=== PATIENT | male | born 1965 | race Caucasian/White ===

== ENCOUNTER 2017-11-27 06:04 | Day surgery (SDC) | payer OTHER ==
[2017-11-26 14:51] VITALS: BMI 30.4
[2017-11-27] MEDS ORDERED: MIDAZOLAM HCL 2 MG/2 ML SINGLE DOSE VIAL ONE ×2 (07:54→08:11)
[2017-11-27] MEDS ORDERED: BUPIVACAINE HCL/PF 0.5% (5MG/ML) 10 ML VIAL ONE (08:03)
[2017-11-27] MEDS ORDERED: LIDOCAINE HCL 1%, 10 MG/ML (20ML VIAL) ONE (08:03)
[2017-11-27] MEDS ORDERED: ceFAZolin SODIUM 1 GM VIAL IVPB ONE (08:04)
[2017-11-27] MEDS ORDERED: ceFAZolin SODIUM 1 GM VIAL ONE (08:04)
--- NOTE | 2017-11-27 08:07 | HP ---
Satellite [facility] - Chief Complaint Chief Complaint: right index finger mass History of Present Illness: right index finger mass History Source: Patient Limitations to Obtaining History: No Limitations - Past Medical History Allergies/Adverse Reactions: Allergies Allergy/AdvReac Type Severity Reaction Status Date / Time No Known Allergies Allergy Verified 11/27/17 06:20 - Current Medications Current Medications: Home Medications Medication Instructions Recorded Multivitamin [One Daily] 1 each PO DAILY 11/26/17 [place]-3 Fatty Acids/Fish Oil [Fish 1 each PO DAILY 11/26/17 Oil 1,000 mg Capsule] Satellite Physical Exam - Physical Examination Vital Signs: Vital Signs Period Temp Pulse Resp BP Sys/Tee Pulse Ox Last 24 Hr 98.1 F 85 16 140/76 98 General Appearance: Well Nourished ENT: Clear Lung: Clear to auscultation Heart: Regular rate & rhythm Breasts: Soft Abdomen: Soft Extremities: No edema Satellite Impression/Plan - Impression/Plan Impression: right index finger mass Operative Procedure: right index finger mass excision Date to be Performed: 11/27/17
[2017-11-27] MEDS ORDERED: BUPIVACAINE HCL/PF 0.5% (5MG/ML) 10 ML VIAL IJ ONE (08:23)
[2017-11-27] MEDS ORDERED: LIDOCAINE HCL 1%, 10 MG/ML (20ML VIAL) NR ONE (08:23)
--- NOTE | 2017-11-27 08:42 | OP ---
Operative Note - Note: Operative Date: 11/27/17 Pre-Operative Diagnosis: right index finger mass Operation: right index finger mass excision Post-Operative Diagnosis: Same as Pre-op Surgeon: Carlos Atkinson Anesthesiologist/MINI SHIFTER: Titi Sutton Anesthesia: Local, MAC Specimens Removed: mass right index finger Estimated Blood Loss (mls): 0 Drains, Volume Out (mls): 0 Blood Volume Replaced (mls): 0 Fluid Volume Replaced (mls): 500 Operative Report Dictated: Yes
[2017-11-27] MEDS ORDERED: oxyCODONE HCL 5 MG TABLET PO PRN (08:52)
[2017-11-27] MEDS ORDERED: ONDANSETRON 4 MG/2 ML VIAL IVPUSH PRN (08:52)
[2017-11-27] MEDS ORDERED: LACTATED RINGERS SOLUTION 1,000 ML IV SCH (09:00)
[2017-11-27 09:21] VITALS: TEMP 97.6
--- NOTE | 2017-11-27 10:58 | OP ---
DATE OF OPERATION: 11/27/2017 PREOPERATIVE DIAGNOSIS: Right index finger mass. POSTOPERATIVE DIAGNOSIS: Right index finger mass. PROCEDURE: Right index finger mass excision. SURGEON: Carlos Carrasco MD ASSISTANTS: None. ANESTHESIOLOGIST: Titi Sutton MD ANESTHESIA: MAC anesthesia, local injection of 5 mL of 0.5% Marcaine and 1% lidocaine mix. DRAINS: None. COMPLICATIONS: None. SPECIMEN: Mass, right index finger. BLOOD LOSS: None. BLOOD GIVEN: None. FLUID REPLACEMENT: Plasma-L:yte, 500 mL. This patient is a 52-year-old male with a history of a painful recurrent mass on the dorsal aspect of his right index finger. After understanding the potential risks, complications, alternatives and benefits of surgical versus nonsurgical treatment the patient elected to undergo this procedure. Patient was brought to the operating room. Peripheral IV placed. IV sedation given. Ancef 1 g IV was given. MAC anesthesia was induced. The right upper extremity was prepped and draped in a sterile fashion. Longitudinal incisions were marked out with a marking pen and 5 mL of 0.5% Marcaine and 1% lidocaine mix was injected in and around the surgical incision. The right upper extremity was then elevated, exsanguinated with an Esmarch bandage and tourniquet inflated to 250 mmHg. A longitudinal incision was made with a No. 15-scalpel blade. Subcutaneous hemostasis achieved with the bipolar cautery. The mass was quite superficial. Circumferential dissection around this mass was done with the fresh No. 15-scalpel blade and the curved sharp-tipped iris scissors. The mass was multilobulated, yellowish in appearance. It did not have fluid. It was not a ganglion cyst. It appeared to be fibrotic in nature. It might be giant cell tumor. It was not invasive into or adherent to the surrounding soft tissues. It was well encapsulated. It was circumferentially dissected free and then passed off the field as specimen in its entirety. The area was copiously irrigated and washed out, inspected and I did not see or feel any other abnormal tissue. The area was irrigated and washed out again and skin closure done with 4-0 nylon suture. The area was then washed and dried, covered with Xeroform, 4 x 4 gauze, fluffs between the fingers, Webril and Coban. The tourniquet was taken down after total tourniquet time of 11 minutes. There were no complications during the case. The patient tolerated the procedure well and was brought to the ambulatory recovery room in stable condition. CARLOS CARRASCO M.D. [id number]
[2017-11-27 12:18] VITALS: BP 125/76; PULSE 64
--- NOTE | 2017-11-28 16:34 | PATH ---
Surgical Pathology Report Patient Name: ANNE MARTINEZ [facility]. Rec. #: [id number] /Age/Gender: 1965 (Age: 52) / M Account: [id number] Location: U SURGICAL Taken: 11/27/2017 Received: 11/27/2017 Reported: 11/28/2017 Physicians: Carlos Atkinson M.D. Specimen(s) Received MASS OF RIGHT INDEX FINGER Clinical History Mass right index finger Final Diagnosis INDEX FINGER, RIGHT, MASS, EXCISION: TENOSYNOVIAL GIANT CELL TUMOR. Electronically Signed Renae Stern M.D. Gross Description Received in formalin labeled "mass right index finger," is a 0.6 x 0.5 x 0.3 cm giron-yellow soft tissue mass. The specimen is submitted in toto in one cassette. DL/11/27/2017 [place]/11/27/2017
== END 2017-11-27 11:35 | disposition home or self-care (01) ==
LOC: JASU-SURG 06:04
PROVIDERS: ATTEND Orthopaedic Surgery
PROC: 0JBJ0ZZ Excision of Right Hand Subcutaneous Tissue and Fascia, Open Approach (ICD-10-PCS; principal; 2017-11-27 08:00)
DX: D48.1 Neoplasm of uncertain behavior of connective and other soft tissue (principal)
CPT/HCPCS: 88305-TC; 94760

== ENCOUNTER 2018-05-31 12:23 | Emergency (ER) | payer OTHER ==
[2018-05-31 12:30] VITALS: BP 161/94; PULSE 96; TEMP 99; BMI 30.4
[2018-05-31] MEDS ORDERED: ALBUTEROL SO4 2.5/IPRATROPIUM 0.5 INH SOL 3 ML VIAL.NEB. NEB ONE ×2 (13:04→13:08)
--- NOTE | 2018-05-31 13:11 | PDOC ---
History of Present Illness - General Chief Complaint: Respiratory Stated Complaint: COLD SYMPTOMS Time Seen by Provider: 05/31/18 12:59 History Source: Patient Exam Limitations: No Limitations - History of Present Illness Initial Comments: 05/31/18 13:11 Patient came to emergency department for evaluation of persistent cough with fevers for the past 3 days. States his had general body aches, headache pain, sore throat pain, and a moist nonproductive cough. Tmax 100.2 at home. Has been using oxlo-rqg-nswiten medications with minimal resolved. States received flu shot 3 weeks ago Timing/Duration: reports: changing over time, getting worse Severity: reports: mild, moderate Associated Symptoms: reports: cough, earache, facial pain, fever/chills, headache, nasal congestion, nasal drainage, sore throat Past History - Travel Traveled outside of the country in the last 30 days: No Close contact w/someone who was outside of country & ill: No - Past Medical History Allergies/Adverse Reactions: Allergies Allergy/AdvReac Type Severity Reaction Status Date / Time No Known Allergies Allergy Verified 05/31/18 12:28 Home Medications: Ambulatory Orders Albuterol Sulfate Inhaler - [Ventolin HFA Inhaler -] 1 - 2 inh PO Q4H #1 inhaler 05/31/18 Azithromycin [Zithromax -] 250 mg PO UTDICT #6 tab 05/31/18 Anemia: No Asthma: No Cancer: No Cardiac Disorders: No CVA: No COPD: No CHF: No Dementia: No Diabetes: No GI Disorders: No Disorders: No HTN: No Hypercholesterolemia: No Liver Disease: No Seizures: No Thyroid Disease: No - Surgical History Cholecystectomy: Yes - Immunization History Td Vaccination: Yes TDAP Vaccination: Yes Immunization Up to Date: Yes - Suicide/Smoking/Psychosocial Hx Smoking Status: Yes Smoking History: Current every day smoker Years of Tobacco Use: 0 Have you smoked in the past 12 months: Yes Number of Cigarettes Smoked Daily: 10 Cigars Per Day: 5 Information on smoking cessation initiated: No 'Breaking Loose' booklet given: 11/27/17 Hx Alcohol Use: Yes (wine occas) Drug/Substance Use Hx: No Substance Use Type: Alcohol Hx Substance Use Treatment: No Review of Systems - Review of Systems Able to Perform ROS?: Yes Is the patient limited Latvian proficient: Yes Constitutional: Yes: Symptoms Reported, See HPI, Chills, Fever, Loss of Appetite , Malaise HEENTM: Yes: Symptoms Reported, See HPI, Nose Congestion, Throat Pain, Throat Swelling Respiratory: Yes: Symptoms reported, See HPI (nonproductive), Cough. No: Orthopnea, Wheezing ABD/GI: No: Symptoms Reported Neurological: Yes: Symptoms reported, See HPI (frontal), Headache Endocrine: No: Symptoms Reported All Other Systems: Reviewed and Negative *Physical Exam - Vital Signs Last Vital Signs Temp Pulse Resp BP Pulse Ox 99.0 F 96 H 18 161/94 99 05/31/18 12:25 05/31/18 12:25 05/31/18 12:25 05/31/18 12:25 05/31/18 12:25 - Physical Exam General Appearance: Yes: Nourished, Appropriately Dressed, Apparent Distress, Mild Distress, Moderate Distress HEENT: positive: Normal ENT Inspection, TMs Normal (congested but landmarks easily visualized), Tonsillar Erythema, Nasal Congestion, Rhinorrhea. negative : Tonsillar Exudate Neck: positive: Supple, Lymphadenopathy (R), Lymphadenopathy (L). negative: Tender Respiratory/Chest: positive: Decreased Breath Sounds, Wheezing (faint expiratory ). negative: Lungs Clear, Normal Breath Sounds Cardiovascular: positive: Regular Rate Gastrointestinal/Abdominal: positive: Soft. 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 We'll treat with Z-Jose and albuterol inhalers. *DC/Admit/Observation/Transfer Diagnosis at time of Disposition: Upper respiratory tract infection Qualifiers: URI type: unspecified URI Qualified Code(s): J06.9 - Acute upper respiratory infection, unspecified - Discharge Dispostion Disposition: HOME Condition at time of disposition: Stable Decision to Admit order: No - Prescriptions Prescriptions: Albuterol Sulfate Inhaler - [Ventolin HFA Inhaler -] 1 - 2 inh PO Q4H #1 inhaler Azithromycin [Zithromax -] 250 mg PO UTDICT #6 tab - Referrals Referrals: Som Rainey MD [Primary Care Provider] - - Patient Instructions Printed Discharge Instructions: DI for Acute Bronchitis Additional Instructions: Rest, drink lots of fluids: Teas, water, soups, Pedialyte Saltwater gargles Steamy showers/seem to face break up mucus Avoid contact with others until fevers and cough resolved Lots of handwashing and good hygiene Continue [id number]-[id number] medications for symptomatic relief Tylenol or Motrin for fever and pain Proventil inhaler, 2 puffs 4 times a day for the next 2 days then as needed for persistent cough Azithromycin as directed Followup with private physician in one to 2 days as needed Return to emergency department for worsened symptoms, fevers, dehydration - Post Discharge Activity Forms/Work/School Notes: Back to Work
== END 2018-05-31 14:08 | disposition home or self-care (01) ==
LOC: JERFT 12:23 → JER 12:23 → JERFT 14:08
PROC: 3E0F7GC Introduction of Other Therapeutic Substance into Respiratory Tract, Via Natural or Artificial Opening (ICD-10-PCS; principal; 2018-05-31)
DX: J06.9 Acute upper respiratory infection, unspecified (principal); F17.210 Nicotine dependence, cigarettes, uncomplicated
CPT/HCPCS: 87804; 99281-25

== ENCOUNTER 2019-09-19 01:54 | Emergency (ER) | payer OTHER ==
[2019-09-19 02:51] VITALS: BMI 29.6
[2019-09-19] MEDS ORDERED: KETOROLAC TROMETHAMINE 30 MG/1 ML VIAL IVPUSH ONE (02:57)
[2019-09-19] MEDS ORDERED: SODIUM CHLORIDE 1,000 ML IV STA (02:57)
--- NOTE | 2019-09-19 03:04 | PDOC ---
Attending Attestation - Resident Resident Name: Shubham Coyle - ED Attending Attestation I have performed the following: I have examined & evaluated the patient, The case was reviewed & discussed with the resident, I agree w/resident's findings & plan - HPI HPI: 09/19/19 06:04 Pt has a kidney stone on the right side. He had this once in the past and he never had it since. States that he doesn;t drink enough water. Pt has no other complaints. - Physicial Exam PE: 09/19/19 06:04 Agree with resident exam Pt has no fever. He has right side pain no abd pain no rash no shingles neuro exam normal heart normal lung normal - Medical Decision Making 09/19/19 06:05 Pain improved with hydration, flomax, meds Pt will follow with urology as an outpatient Name: [facility] THIS IS A PRELIMINARY REPORT FROM [facility] DATE OF SERVICE: 2019-09-19 04:26:21 IMAGES: [id number] EXAM: SPIRAL- RENAL-STONE CT HISTORY: Rule out kidney stone COMPARISON: None. FINDINGS: Lung bases are clear. The visualized cardiac chambers are normal size and configuration. Status post cholecystectomy without biliary duct dilation. There is minimal right hydronephrosis secondary to a 3 mm distal UVJ stone. No other stones identified. Normal liver, pancreas, spleen, adrenal glands and left kidney. The stomach and abdominal small and large bowel are normal. There is no aortic aneurysm. There is no significant retroperitoneal lymphadenopathy. The pelvic small and large bowel are normal. The appendix is normal. The urinary bladder is not inflamed. The prostate gland at its normal. No pelvic free fluid is identified. There is no significant pelvic lymphadenopathy. IMPRESSION: Minimal right hydronephrosis secondary to a 3 mm distal UVJ stone.
--- NOTE | 2019-09-19 03:07 | PDOC ---
History of Present Illness - General Chief Complaint: Pain Stated Complaint: PAIN Time Seen by Provider: 09/19/19 02:52 - History of Present Illness Initial Comments: 09/19/19 03:21 Mr. Harrell is a 54 yo male w/ pmh of kidney stones (distant, last 25 years ago) who presents for evaluation of 1 day history of R flank pain that has been intermittent since 10am yesterday. Patient reports symptoms started in AM and were manageable however progressed throughout the day to keep him from sleeping overnight. Patient presents as symptoms have continued. Denies symptoms beyond pain at this time. The patient denies chest pain, shortness of breath, headache and dizziness. Denies fever, chills, nausea, vomit, diarrhea and constipation. Denies dysuria, frequency, urgency and hematuria. Past History - Past Medical History Allergies/Adverse Reactions: Allergies Allergy/AdvReac Type Severity Reaction Status Date / Time No Known Allergies Allergy Verified 09/19/19 02:51 Home Medications: Ambulatory Orders Albuterol Sulfate Inhaler - [Ventolin HFA Inhaler -] 1 - 2 inh PO Q4H #1 inhaler 05/31/18 Azithromycin [Zithromax -] 250 mg PO UTDICT #6 tab 05/31/18 Tamsulosin HCl [Flomax] 0.4 mg PO DAILY #7 cap.er.24h 09/19/19 Anemia: No Asthma: No Cancer: No Cardiac Disorders: No CVA: No COPD: No CHF: No Dementia: No Diabetes: No GI Disorders: No Disorders: No HTN: No Hypercholesterolemia: No Liver Disease: No Seizures: No Thyroid Disease: No - Surgical History Cholecystectomy: Yes - Immunization History Td Vaccination: Yes TDAP Vaccination: Yes Immunization Up to Date: Yes - Psycho Social/Smoking Cessation Hx Smoking Status: Yes Smoking History: Current every day smoker Years of Tobacco Use: 0 Have you smoked in the past 12 months: Yes Number of Cigarettes Smoked Daily: 2 Cigars Per Day: 5 Information on smoking cessation initiated: No 'Breaking Loose' booklet given: 11/27/17 Hx Alcohol Use: No Drug/Substance Use Hx: No Substance Use Type: Alcohol Hx Substance Use Treatment: No Review of Systems - Review of Systems Comments:: 09/19/19 03:22 GENERAL/CONSTITUTIONAL: No fever or chills. No weakness. HEAD, EYES, EARS, NOSE AND THROAT: No change in vision. No ear pain or discharge. No sore throat. CARDIOVASCULAR: No chest pain or shortness of breath RESPIRATORY: No cough, wheezing, or hemoptysis. GASTROINTESTINAL: No nausea, vomiting, diarrhea or constipation. GENITOURINARY: +R flank pain as described. No dysuria, frequency, or change in urination. MUSCULOSKELETAL: No joint or muscle swelling or pain. No neck or back pain. SKIN: No rash NEUROLOGIC: No headache, vertigo, loss of consciousness, or change in strength/ sensation. ENDOCRINE: No increased thirst. No abnormal weight change HEMATOLOGIC/LYMPHATIC: No anemia, easy bleeding, or history of blood clots. ALLERGIC/IMMUNOLOGIC: No hives or skin allergy. *Physical Exam - Vital Signs Last Vital Signs Temp Pulse Resp BP Pulse Ox 97.9 F 77 16 160/91 99 09/19/19 02:00 09/19/19 02:00 09/19/19 02:00 09/19/19 02:00 09/19/19 02:00 - Physical Exam 09/19/19 03:23 GENERAL: Awake, alert, and fully oriented, in no acute distress HEAD: No signs of trauma, normocephalic, atraumatic EYES: PERRLA, EOMI, sclera anicteric, conjunctiva clear ENT: Auricles normal inspection, hearing grossly normal, nares patent, oropharynx clear without exudates. Moist mucosa NECK: Normal ROM, supple, no lymphadenopathy, JVD, or masses LUNGS: No distress, speaks full sentences, clear to auscultation bilaterally HEART: Regular rate and rhythm, normal S1 and S2, no murmurs, rubs or gallops, peripheral pulses normal and equal bilaterally. ABDOMEN: +R flank TTP. Abdomen soft, nontender, normoactive bowel sounds. No guarding, no rebound. No masses EXTREMITIES: Normal inspection, Normal range of motion, no edema. No clubbing or cyanosis. NEUROLOGICAL: Cranial nerves II through XII grossly intact. Normal speech, normal gait, no focal sensorimotor deficits SKIN: Warm, Dry, normal turgor, no rashes or lesions noted. ED Treatment Course - LABORATORY CBC & Chemistry Diagram: 09/19/19 03:00 09/19/19 03:00 Medical Decision Making - Medical Decision Making 09/19/19 05:37 Mr. Harrell is a 54 yo male w/ pmh as described who presents for evaluation of symptoms c/w nephrolithiasis. Patient evaluated with labs and CT spiral which confirmed 3mm R UVJ stone. Patient reporting improvement of symptoms following toradol and fluids. Will discharge w/ instructions to f/u w/ urologist. No concern for acute process at this time. Laboratory Results - last 24 hr 09/19/19 09/19/19 09/19/19 03:00 03:00 03:00 WBC 8.9 RBC 5.17 Hgb 14.6 Hct 44.4 MCV 86.0 MCH 28.3 MCHC 32.9 RDW 14.2 Plt Count 110 L D MPV 11.7 H Absolute Neuts (auto) 5.8 Neutrophils % 65.6 Lymphocytes % 24.5 D Monocytes % 7.8 Eosinophils % 1.5 D Basophils % 0.6 Nucleated RBC % 0 PT with INR 11.10 INR 0.94 PTT (Actin FS) 30.0 Sodium 139 Potassium 4.0 Chloride 104 Carbon Dioxide 26 Anion Gap 9 BUN 19.3 H Creatinine 1.1 Est GFR (CKD-EPI)AfAm 87.13 Est GFR (CKD-EPI)NonAf 75.17 Random Glucose 108 H Calcium 9.3 Total Bilirubin 0.4 AST 37 ALT 46 Alkaline Phosphatase 69 Total Protein 7.1 Albumin 4.0 Urine Color Urine Appearance Urine pH Ur Specific Darby Urine Protein Urine Glucose (UA) Urine Ketones Urine Blood Urine Nitrite Urine Bilirubin Urine Urobilinogen Ur Leukocyte Esterase Urine WBC (Auto) Urine RBC (Auto) Urine Casts (Auto) U Epithel Cells (Auto) Urine Bacteria (Auto) 09/19/19 03:20 WBC RBC Hgb Hct MCV MCH MCHC RDW Plt Count MPV Absolute Neuts (auto) Neutrophils % Lymphocytes % Monocytes % Eosinophils % Basophils % Nucleated RBC % PT with INR INR PTT (Actin FS) Sodium Potassium Chloride Carbon Dioxide Anion Gap BUN Creatinine Est GFR (CKD-EPI)AfAm Est GFR (CKD-EPI)NonAf Random Glucose Calcium Total Bilirubin AST ALT Alkaline Phosphatase Total Protein Albumin Urine Color Yellow Urine Appearance Clear Urine pH 5.5 D Ur Specific [place] 1.013 Urine Protein Negative Urine Glucose (UA) Negative Urine Ketones Negative Urine Blood 1+ H Urine Nitrite Negative Urine Bilirubin Negative Urine Urobilinogen 1.0 Ur Leukocyte Esterase Negative Urine WBC (Auto) 0 Urine RBC (Auto) 2 Urine Casts (Auto) 0 U Epithel Cells (Auto) 0.1 Urine Bacteria (Auto) 0.3 Discharge - Discharge Information Problems reviewed: Yes Clinical Impression/Diagnosis: Kidney stone on right side Disposition: HOME - Additional Discharge Information Prescriptions: Tamsulosin HCl [Flomax] 0.4 mg PO DAILY #7 cap.er.24h - Follow up/Referral Referrals: Som Rainey MD [Primary Care Provider] - Roxie Boo MD [Staff Physician] - - Patient Discharge Instructions Patient Printed Discharge Instructions: DI for Kidney Stones Additional Instructions: You were evaluated today in the ER and found to have a 3mm kidney stone on CT scan. Your pain improved following medication. We sent a proscription to your pharmacy. Take all medications as written. You may take over the counter motrin for pain control as needed. Please follow-up with urologist as described later this week. Return to ER if any fever, difficulty urinating, chills, increase in pain, or other concerning symptoms. - Post Discharge Activity
[2019-09-19] MEDS ORDERED: ACETAMINOPHEN 1000 MG/100 ML VIAL (NON FORMULARY) IVPB ONE (03:09)
[2019-09-19] MEDS ORDERED: ACETAMINOPHEN INJECTION 100 ML IVPB ONE (03:19)
[2019-09-19] MEDS ORDERED: KETOROLAC TROMETHAMINE 30 MG/1 ML VIAL ONE (03:20)
[2019-09-19 03:41] LABS: BASO % 0.6 % (0-2.0); EOS % 1.5 % (0-4.5); HEMATOCRIT 44.4 % (35.4-49); HEMOGLOBIN 14.6 GM/dL (11.7-16.9); LYMPH % 24.5 % (8-40); MCH 28.3 pg (25.7-33.7); MCHC 32.9 g/dl (32.0-35.9); MEAN PLT VOLUME 11.7 fl (7.5-11.1); MONO % 7.8 % (3.8-10.2); NEUT % 65.6 % (42.8-82.8); PLATELET COUNT 110 K/MM3 (134-434); RBC 5.17 M/mm3 (4.00-5.60); RDW 14.2 % (11.9-15.9); WHITE BLOOD COUNT 8.9 K/mm3 (4.0-10.0)
[2019-09-19 04:01] LABS: INR 0.94 (0.83-1.09); PROTHROMBIN TIME (PATIENT) 11.1 SEC (9.7-13.0)
[2019-09-19 04:13] LABS: BILIRUBIN,TOTAL 0.4 mg/dL (0.2-1); BLOOD UREA NITROGEN 19.3 mg/dL (7-18); CALCIUM 9.3 mg/dL (8.5-10.1); CREATININE 1.1 mg/dL (0.55-1.3); TOT PROT 7.1 g/dl (6.4-8.2)
[2019-09-19 04:37] LABS: EPI CELLS 0.1 /HPF (0-5/HPF); HYALINE CASTS 0 /lpf (0-8); PH,URINE 5.5 (5.0-8.0); URINE APPEARANCE CLEAR; URINE BACTERIA 0.3 /hpf (NEGATIVE); URINE BILIRUBIN NEGATIVE (NEGATIVE); URINE COLOR YELLOW; URINE GLUCOSE (UA) NEGATIVE (NEGATIVE); URINE KETONE NEGATIVE (NEGATIVE); URINE LEUK ESTERASE NEGATIVE (NEGATIVE); URINE NITRITE NEGATIVE (NEGATIVE); URINE PROTEIN NEGATIVE (NEGATIVE); URINE RBC 2 /hpf (0-4); URINE WBC 0 /hpf (0-5)
[2019-09-19 06:46] VITALS: BP 156/96; PULSE 67; TEMP 98
== END 2019-09-19 06:05 | disposition home or self-care (01) ==
LOC: JER 01:54
PROC: 3E0337Z Introduction of Electrolytic and Water Balance Substance into Peripheral Vein, Percutaneous Approach (ICD-10-PCS; principal; 2019-09-19)
PROC: 3E033NZ Introduction of Analgesics, Hypnotics, Sedatives into Peripheral Vein, Percutaneous Approach (ICD-10-PCS; 2019-09-19)
PROC: 3E0333Z Introduction of Anti-inflammatory into Peripheral Vein, Percutaneous Approach (ICD-10-PCS; 2019-09-19)
DX: N20.0 Calculus of kidney (principal); Z87.442 Personal history of urinary calculi
CPT/HCPCS: 36415; 74176-TC; 80053; 81003; 85025; 85610; 85730; 87086; 99285-25; J0131; J7030

== ENCOUNTER 2020-01-17 10:22 | Day surgery (SDC) | payer OTHER ==
[2020-01-17] MEDS ORDERED: MIDAZOLAM HCL 2 MG/2 ML SINGLE DOSE VIAL ONE (12:19)
[2020-01-17] MEDS ORDERED: KETOROLAC TROMETHAMINE 30 MG/1 ML VIAL ONE (12:19)
--- NOTE | 2020-01-17 13:14 | OP ---
Operative Note - Note: Operative Date: 01/17/20 Pre-Operative Diagnosis: Right renal stone Operation: Right ESWL Findings: 7 mm upper pole Right renal stone Surgeon: Ej Jonas Anesthesia: Fractional, Topical Estimated Blood Loss (mls): 0 Drains, Volume Out (mls): 0 Operative Report Dictated: Yes
[2020-01-17 13:17] VITALS: TEMP 97.8
[2020-01-17 13:53] VITALS: BP 110/74; PULSE 64
--- NOTE | 2020-01-18 08:22 | OP ---
DATE OF OPERATION: 01/17/2020 PREOPERATIVE DIAGNOSIS: Right renal stone. POSTOPERATIVE DIAGNOSIS: Right renal stone. PROCEDURE: Right extracorporeal shockwave lithotripsy. ATTENDING: Vy Desai MD ANESTHESIA: Fractional. DESCRIPTION OF OPERATION: Patient was brought in the operating room, placed in a supine position on the operating room table. Ultrasonography and fluoroscopy were performed. A 7-mm right upper pole stone was identified. Anesthesia and preoperative antibiotics were then administered; 2500 impulses at 17 joules of power were administered to the stone with excellent fragmentation. The stone was noted. No complications were noted. Disposition of the patient was to recovery room. VY DESAI M.D. /[id number]
== END 2020-01-17 13:55 | disposition home or self-care (01) ==
LOC: JASU-SURG 10:22
PROVIDERS: ATTEND Urology
PROC: 0TF3XZZ Fragmentation in Right Kidney Pelvis, External Approach (ICD-10-PCS; principal; 2020-01-17 12:00)
DX: N20.0 Calculus of kidney (principal)

== ENCOUNTER 2020-06-21 14:27 | Emergency (ER) | payer OTHER ==
[2020-06-21 14:50] VITALS: BP 164/99; PULSE 86; BMI 30.1
== END 2020-06-21 15:59 | disposition home or self-care (01) ==
LOC: JERFT 14:27
DX: R05 Cough (principal)
CPT/HCPCS: 99283-25; C9803; U0003

== ENCOUNTER 2022-07-29 04:11 | Day surgery (SDC) | payer OTHER ==
[2022-07-24 13:51] VITALS: BMI 29.0
[2022-07-29 07:31] VITALS: RESP 18
[2022-07-29] MEDS ORDERED: MIDAZOLAM HCL 2 MG/2 ML SINGLE DOSE VIAL ONE (09:29)
[2022-07-29] MEDS ORDERED: ONDANSETRON 4 MG/2 ML VIAL ONE (09:30)
[2022-07-29] MEDS ORDERED: KETOROLAC TROMETHAMINE 30 MG/1 ML VIAL ONE (09:30)
[2022-07-29] MEDS ORDERED: DEXAMETHASONE SOD PHOSPHATE 4 MG/1 ML VIAL ONE (09:30)
[2022-07-29 11:31] VITALS: TEMP 97.8
[2022-07-29] MEDS ORDERED: LIDOCAINE HCL/PF 2% SDV 5ML VIAL ONE (12:13)
[2022-07-29 12:33] VITALS: BP 128/88; PULSE 69
== END 2022-07-29 12:18 | disposition home or self-care (01) ==
LOC: JASU-SURG 04:11
PROVIDERS: ATTEND Urology
PROC: 0TF3XZZ Fragmentation in Right Kidney Pelvis, External Approach (ICD-10-PCS; principal; 2022-07-29 09:30)
DX: N20.0 Calculus of kidney (principal)

== ENCOUNTER 2022-08-27 08:24 | Emergency (ER) | payer OTHER ==
[2022-08-27 08:36] VITALS: RESP 18; BMI 28.1
[2022-08-27] MEDS ORDERED: LIDOCAINE 5% TOPICAL PATCH TP ONE (08:56)
[2022-08-27] MEDS ORDERED: KETOROLAC TROMETHAMINE 30 MG/1 ML VIAL IM ONE (08:56)
[2022-08-27] MEDS ORDERED: METHOCARBAMOL 500 MG TABLET PO ONE (08:59)
[2022-08-27] MEDS ORDERED: LIDOCAINE 5% TOPICAL PATCH ONE (09:04)
[2022-08-27] MEDS ORDERED: METHOCARBAMOL 500 MG TABLET ONE (09:04)
[2022-08-27] MEDS ORDERED: KETOROLAC TROMETHAMINE 30 MG/1 ML VIAL ONE (09:04)
[2022-08-27 09:48] VITALS: BP 134/85; PULSE 69; TEMP 98.2
[2022-08-27 10:39] LABS: PH,URINE 6.5 (5.0-8.0); URINE APPEARANCE CLEAR; URINE BILIRUBIN NEGATIVE (NEGATIVE); URINE COLOR YELLOW; URINE GLUCOSE (UA) NEGATIVE (NEGATIVE); URINE KETONE NEGATIVE (NEGATIVE); URINE LEUK ESTERASE NEGATIVE (NEGATIVE); URINE NITRITE NEGATIVE (NEGATIVE); URINE PROTEIN NEGATIVE (NEGATIVE)
[2022-08-27] MEDS ORDERED: LIDOCAINE PATCH REMOVAL MC SCH (22:00)
== END 2022-08-27 11:12 | disposition home or self-care (01) ==
LOC: JER 08:24 → JERFT 08:24
PROC: 3E023GC Introduction of Other Therapeutic Substance into Muscle, Percutaneous Approach (ICD-10-PCS; principal; 2022-08-27)
DX: M54.50 Low back pain, unspecified (principal)
CPT/HCPCS: 81003; 99284-25

== ENCOUNTER 2022-11-22 01:31 | Emergency (ER) | payer OTHER ==
[2022-11-22 01:51] VITALS: BP 159/90; PULSE 73; RESP 18; TEMP 97.9; BMI 28.1
[2022-11-22] MEDS ORDERED: DEXAMETHASONE 0.1% OPHTHALMIC SOLN 5 ML BOTTLE OU ONE (03:22)
[2022-11-22] MEDS ORDERED: DEXAMETHASONE 0.1% OPHTHALMIC SOLN 5 ML BOTTLE OU SCH ×2 (03:22→06:00)
== END 2022-11-22 03:51 | disposition home or self-care (01) ==
LOC: JER 01:31
DX: H57.13 Ocular pain, bilateral (principal)
CPT/HCPCS: 99283-25

== ENCOUNTER 2023-08-20 04:11 | Day surgery (SDC) | payer OTHER ==
[2023-08-14 14:35] VITALS: BMI 28.8
[~2023-08-20 04:11] MED LIST: BUPIVACAINE HCL/PF 0.5% (5MG/ML) 10 ML VIAL IJ ONE; LIDOCAINE HCL 1%, 10 MG/ML (20ML VIAL) NR ONE
[2023-08-20] MEDS ORDERED: BUPIVACAINE HCL/PF 0.5% (5MG/ML) 10 ML VIAL ONE (07:22)
[2023-08-20] MEDS ORDERED: LIDOCAINE HCL 1%, 10 MG/ML (20ML VIAL) ONE (07:22)
[2023-08-20] MEDS ORDERED: DEXAMETHASONE SOD PHOSPHATE 4 MG/1 ML VIAL ONE ×2 (09:13→09:33)
[2023-08-20] MEDS ORDERED: KETOROLAC TROMETHAMINE 30 MG/1 ML VIAL ONE (09:13)
[2023-08-20] MEDS ORDERED: LIDOCAINE HCL/PF 2% SDV 5ML VIAL ONE (09:13)
[2023-08-20] MEDS ORDERED: ONDANSETRON 4 MG/2 ML VIAL ONE ×2 (09:13→09:33)
[2023-08-20] MEDS ORDERED: ALBUTEROL SO4 HFA INHALER IH ONE (09:13)
[2023-08-20] MEDS ORDERED: ceFAZolin SODIUM 1 GM VIAL ONE (09:13)
[2023-08-20] MEDS ORDERED: PROPOFOL 40 ML ONE (09:16)
[2023-08-20] MEDS ORDERED: MIDAZOLAM HCL 2 MG/2 ML SINGLE DOSE VIAL ONE (09:16)
[2023-08-20] MEDS ORDERED: ceFAZolin SODIUM 1 GM VIAL IVPB ONE (09:20)
[2023-08-20] MEDS ORDERED: BUPIVACAINE HCL/PF 0.5% (5MG/ML) 10 ML VIAL IJ ONE ×2 (09:37)
[2023-08-20] MEDS ORDERED: LIDOCAINE HCL 1%, 10 MG/ML (20ML VIAL) NR ONE ×2 (09:37)
[2023-08-20] MEDS ORDERED: BACITRACIN ZINC 15 GM TUBE TOPICAL OINTMENT ONE (09:45)
[2023-08-20] MEDS ORDERED: SUCCINYLCHOLINE CHLORIDE 200 MG/10 ML SYRINGE ONE (09:57)
[2023-08-20] MEDS ORDERED: ACETAMINOPHEN INJECTION 100 ML IVPB ONE (10:04)
[2023-08-20] MEDS ORDERED: HYDROmorphone HCl 2 MG/ML VIAL ONE (10:05)
[2023-08-20] MEDS ORDERED: oxyCODONE HCL 5 MG TABLET PO PRN (10:37)
[2023-08-20] MEDS ORDERED: ONDANSETRON 4 MG/2 ML VIAL IVPUSH PRN (10:37)
[2023-08-20] MEDS ORDERED: LACTATED RINGERS SOLUTION 1,000 ML IV SCH (10:45)
[2023-08-20 12:00] VITALS: RESP 18
[2023-08-20 12:47] VITALS: BP 109/64; PULSE 68; TEMP 97.8
== END 2023-08-20 12:59 | disposition home or self-care (01) ==
LOC: JASU-SURG 04:11
PROVIDERS: ATTEND Surgery
PROC: 0JB40ZZ Excision of Right Neck Subcutaneous Tissue and Fascia, Open Approach (ICD-10-PCS; principal; 2023-08-20 09:00)
DX: D17.0 Benign lipomatous neoplasm of skin and subcutaneous tissue of head, face and neck (principal)
CPT/HCPCS: 94760; J0131